=== PATIENT | female | born 1950 | race Caucasian/White ===

== ENCOUNTER → 2018-12-03 08:45 | Day surgery (SDC) | payer MEDICARE, MEDICAID ==
[~2018-12-03 08:45] MED LIST: Buffered Lidocaine 1% SYRIN* 1 ML/SYRINGE INTRADERM ONE; Bupivacaine 0.25% SDV PF* 10 ML VIAL INJ ONE; Clindamycin 900 MG IVPREMIX(* 900 MG/50 ML SDV IV ONE; Dexamethasone TAB* 4 MG ONE; Dexamethasone TAB* 4 MG PO ONE; DiMENhydriNATE IV* 50 MG/ML VIAL IV PUSH PRN; Famotidine IV* 10 MG/ML 2 ML (20 mg) IV ONE; Famotidine IV* 10 MG/ML 2 ML (20 mg) ONE; HYDROmorphone INJ1* 1 MG/ML SYRINGE IV PRN; Lactated Ringers 1000 ML Bag* 1,000 ML IV SCH; Lidocaine 2% PF * 5 ML VIAL ONE; Midazolam* 1 MG/ML 5 ML VIAL (5 MG) ONE; Naloxone* 0.4 MG/ML 1 ML VIAL IV PRN; Ondansetron ODT TAB* 4 MG ONE; Ondansetron TAB* 4 MG PO ONE; PROCHLORPERAZINE INJ 5 MG/ML 2 ML VIAL IV PRN; Propofol* 10 MG/ML 20 ML BTL ONE; Propofol* 500 MG/50 ML BTL ONE; Scopolamine 1.5 mg* PATCH ONE; Scopolamine 1.5 mg* PATCH TRANSDERM ONE; Scopolamine PATCH Remove* 1 NOTE MISC PATCH OFF ONE; fentaNYL* 50 MCG/ML 2 ML VIAL (100 MCG VIAL) IV PRN; fentaNYL* 50 MCG/ML 2 ML VIAL (100 MCG VIAL) ONE; oxyCODONE/Acetamin 5/325 MG* TAB PO PRN
[2018-12-03 13:56] VITALS: BP 154/95
--- NOTE | 2018-12-03 15:42 | OP ---
Operative Report - Blank - Operative Report Date of Operation: 12/03/18 Note: PATIENT: Yuridia Kinsey DATE OF : 1950 DATE OF SURGERY: 12/03/2018 SURGEON: Lloyd Duran MD MORTGAGE CLOSER: DALI Cadet, whos assistance was necessary for positioning, retraction, help with instrumentation, and closure. ANESTHESIOLOGIST: Dr. 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 Left 2nd and 3rd metatarsal shortening osteotomies 2. Left 2nd and 3rd Hammertoe corrections with PIP resection arthroplasties 3. Left 2nd and 3rd EDL z-lenghtenings and EDB tenotomies ANESTHESIA: MAC IMPLANTS: 0.045 k-wire TOURNIQUET TIME: Less than 1 hour with an ankle Esmarch tourniquet SPECIMENS: none ESTIMATED BLOOD LOSS: minimal COMPLICATIONS: none STATUS: Stable from the operating room to the recovery room and then home INDICATIONS FOR PROCEDURE: Yuridia has had persistent pain and deformities from the above problems. Both operative and non-operative treatment alternatives were reviewed. Further, the nature and risks of surgery were reviewed in careful detail. Our discussions regarding the risks of surgery included, but were not limited to, infection, wound problems, nerve injury, neuroma, RSD, persistent symptoms, blood clot, recurrent pain or deformity, need for further surgery, failure of the surgery, and even the remote chance of catastrophic complication, including loss of limb. DESCRIPTION OF PROCEDURE: The patient was seen in the preoperative holding unit and informed written consent was obtained. The appropriate extremity was marked. The patient was then brought to the operating room and carefully positioned on the operating room table. Anesthesia was induced. All bony prominences were padded with great care. A chlorhexidine based pre-scrub was performed followed by a chloraprep prep and drape in standard sterile fashion. A surgical safety pause was then conducted in which we confirmed the appropriate patient, extremity, planned procedure, availability of equipment, indication and administration of prophylactic antibiotics, and DVT prophylaxis in the form of a compression boot on the non-surgical extremity. I began with an Esmarch exsanguination of limb and placement of an ankle Esmarch tourniquet. A longitudinal incision was made between the second and third metatarsals in the webspace. Dissection was carried down to expose the dorsal joint capsules of the second and third MTP joints. The joint capsules were incised longitudinally to expose the second and third metatarsal heads. I then used an oscillating saw to perform an oblique metatarsal shortening osteotomy of the second metatarsal (Denita/Maceira osteotomy). A small wafer of bone was removed, and the metatarsal head reduced to the remaining metatarsal shaft. I then used a 2.0 mm, length, 14 mm, twist-off screw to secure the osteotomy. capsules were incised longitudinally to expose the second and third metatarsal heads. I then used an oscillating saw to perform an oblique metatarsal shortening osteotomy of the third metatarsal (Denita/Maceira osteotomy). A small wafer of bone was removed, and the metatarsal head reduced to the remaining metatarsal shaft. I then used a 2.0 mm, length, 14 mm, twist-off screw to secure the osteotomy. There was still some extension of the MTP joints, so I then decided to perform extensor tendon lengthenings. The EDL of the second and third toes was then exposed and a Z-lengthening was performed. The EDB to each was then tenotomized. This led to much improved MTP joint alignment. Two incisions were then made over the 2nd and 3rd toe PIP joints and taken down to the level of bone and joint. The collateral ligaments were released on both sides. I then used a small oscillating saw to osteotomize the distal aspect of the proximal phalanx of the second and third toes. These were then excised. I then placed a 0.045 K wire through each of the toes in an antegrade/retrograde fashion. The resection and pin placement was then confirmed with fluoroscopy. The toe sat nice and straight clinically. The wounds were copiously irrigated and meticulously closed in layers utilizing 3-0 Monocryl and 3-0 Nylon. A sterile dressing was then applied. The patient was then awakened from anesthesia and transferred to the recovery room in stable condition. There were no complications. All needle and sponge counts were correct at the end of the case. ATTESTATION: I attest I was present and scrubbed and performed the critical portions of the procedure myself. POSTOPERATIVE PLAN: Heel weightbearing and we will plan on 6 weeks with the k- wires.
== END | disposition home or self-care (01) ==
LOC: OR 08:45
PROVIDERS: ATTEND Orthopaedic Surgery
DX: M20.42 Other hammer toe(s) (acquired), left foot (principal); M77.42 Metatarsalgia, left foot; M65.872 Other synovitis and tenosynovitis, left ankle and foot; K21.9 Gastro-esophageal reflux disease without esophagitis
CPT/HCPCS: 76000; A9270-GY; C1713; J2250; J2704; J3010; J3490; J8540